=== PATIENT | female | born 1960 | race Caucasian/White ===

== ENCOUNTER 2022-02-01 20:57 | Observation (INO) ==
[2022-02-01 21:37] LABS: Bilirubin,Urine Negative (Negative); Blood,Urine Negative (Negative); Clarity,Urine Clear (Clear); Color,Urine Colorless (Yellow); Glucose,Urine (UA) Normal (Normal); Ketones,Urine Negative (Negative); Leukocyte Esterase,Urine Negative (Negative); Nitrite,Urine Negative (Negative); Protein,Urine Negative (Neg-Trace); Specific Gravity,Urine < 1.005 (1.010-1.025); Urobilinogen,Urine Normal (Normal)
[2022-02-01 21:40] LABS: Basophils # 0.1 K/mcL (0.0-0.2); Basophils % 0.6 %; Eosinophils # 0.1 K/mcL (0.0-0.6); Hematocrit 51.1 % (35.3-44.9); Hemoglobin 18.1 g/dL (11.5-15.4); Immature Granulocytes % 0.6 % (0-4); Lymphocytes # 3.1 K/mcL (0.6-4.6); Lymphocytes % 34.7 %; Mean Corpuscular HGB Conc 35.4 g/dL (31.6-35.5); Mean Corpuscular Hemoglobin 34.6 pg (28.0-33.3); Mean Corpuscular Volume 97.7 fL (83.0-100.0); Mean Platelet Volume 9.2 fL (9.4-12.4); Monocytes # 0.5 K/mcL (0.0-1.3); Monocytes % 5.8 %; Neutrophils # 5.1 K/mcL (1.6-8.9); Platelet Count 315 K/mcL (140-400); Red Blood Count 5.23 M/mcL (3.82-4.97); Red Cell Distribution Width 13.5 % (11.5-14.5); Segmented Neutrophils % 57.3 %; White Blood Count 8.9 K/mcL (4.3-11.1)
[2022-02-01 21:49] LABS: Amphetamine Screen,Urine Negative ng/mL (Cutoff=1000); Barbiturate Screen,Urine Negative ng/mL (Cutoff=200); Benzodiazepines Screen,Urine Positive ng/mL (Cutoff=200); Cannabinoid Screen,Urine Negative ng/mL (Cutoff = 50); Cocaine Screen,Urine Negative ng/mL (Cutoff= 300); Opiate Screen,Urine Negative ng/mL (Cutoff=300); Phencyclidine Screen,Urine Negative ng/mL (Cutoff=25)
[2022-02-01 22:02] LABS: Acetaminophen < 10 mcg/mL (10-20); Alanine Aminotransferase 13 Units/L (7-52); Albumin 4.2 g/dL (3.5-5.7); Albumin/Globulin Ratio 1.4 (1.1-2.2); Alkaline Phosphatase 70 Units/L (34-104); Aspartate Amino Transferase 12 Units/L (13-39); BUN/Creatinine Ratio 12 (6-26); Bilirubin,Indirect 0.4 mg/dL (0.0-1.0); Bilirubin,Total 0.4 mg/dL (0.3-1.0); Blood Urea Nitrogen 11 mg/dL (6-20); Calcium 9.4 mg/dL (8.6-10.3); Carbon Dioxide 27 mEq/L (23-29); Chloride 98 mEq/L (98-107); Ethanol 84 mg/dL (Less than 10); Glucose 78 mg/dL (70-105); Osmolality,Calculated 278 (280-300); Potassium 4.1 mEq/L (3.5-5.1); Salicylate < 2.5 mg/dL (15.0-30.0); Sodium 135 mEq/L (136-145); Total Protein 7.2 g/dL (6.4-8.9); eGFR For African Americans > 60 (> 60); eGFR For Non-African Americans > 60 (> 60)
[2022-02-02] MEDS ORDERED: Ondansetron 4 MG/2 ML VIAL IVP PRN (03:04)
[2022-02-02] MEDS ORDERED: Acetaminophen 325 MG TABLET PO PRN (03:04)
[2022-02-02] MEDS ORDERED: Melatonin 3 MG TABLET PO PRN (03:04)
[2022-02-02] MEDS ORDERED: Naloxone 0.4 MG/ML INJ IVP PRN (03:04)
[2022-02-02] MEDS ORDERED: *HR* LORazepam 2 MG/ML VIAL IVP PRN ×3 (03:12)
[2022-02-02] MEDS: Ringers Solution, Lactated 1,000 ML IVC SCH ×2 (03:43→10:35)
[2022-02-02] MEDS: *HR* Enoxaparin 40 MG/0.4 ML SYRINGE SQ SCH (05:50)
[2022-02-02 07:44] LABS: Basophils % 0.5 %; Eosinophils # 0.1 K/mcL (0.0-0.6); Eosinophils % 1.2 %; Hematocrit 44.2 % (35.3-44.9); Immature Granulocytes % 0.4 % (0-4); Lymphocytes # 2.2 K/mcL (0.6-4.6); Lymphocytes % 28.6 %; Mean Corpuscular HGB Conc 33.9 g/dL (31.6-35.5); Mean Corpuscular Hemoglobin 34.2 pg (28.0-33.3); Mean Corpuscular Volume 100.9 fL (83.0-100.0); Mean Platelet Volume 9.6 fL (9.4-12.4); Monocytes # 0.7 K/mcL (0.0-1.3); Monocytes % 8.7 %; Neutrophils # 4.7 K/mcL (1.6-8.9); Platelet Count 249 K/mcL (140-400); Red Blood Count 4.38 M/mcL (3.82-4.97); Red Cell Distribution Width 13.6 % (11.5-14.5); Segmented Neutrophils % 60.6 %; White Blood Count 7.7 K/mcL (4.3-11.1)
[2022-02-02 07:46] LABS: INR 0.9; Prothrombin Time 10.3 Seconds (9.4-12.1)
[2022-02-02 08:12] LABS: Alanine Aminotransferase 10 Units/L (7-52); Albumin 3.3 g/dL (3.5-5.7); Albumin/Globulin Ratio 1.4 (1.1-2.2); Alkaline Phosphatase 55 Units/L (34-104); Aspartate Amino Transferase 10 Units/L (13-39); BUN/Creatinine Ratio 14 (6-26); Bilirubin,Total 0.4 mg/dL (0.3-1.0); Blood Urea Nitrogen 12 mg/dL (6-20); Calcium 8.5 mg/dL (8.6-10.3); Carbon Dioxide 28 mEq/L (23-29); Chloride 106 mEq/L (98-107); Globulin 2.4 g/dL (2.4-3.5); Glucose 113 mg/dL (70-105); Magnesium 1.9 mg/dL (1.6-2.6); Osmolality,Calculated 291 (280-300); Sodium 140 mEq/L (136-145); Total Protein 5.7 g/dL (6.4-8.9); eGFR For African Americans > 60 (> 60); eGFR For Non-African Americans > 60 (> 60)
[2022-02-02] MEDS: Vitamin B Complex/Vit C/Vit E 1 EACH TABLET PO SCH (08:48)
[2022-02-02] MEDS: Folic Acid 1 MG TABLET PO SCH (08:48)
[2022-02-02] MEDS: Thiamine (B-1) 100 MG TABLET PO SCH (08:48)
[2022-02-02] MEDS: BuPROPion XL (24 HR) 150 MG TABLET PO SCH (11:44)
[2022-02-03] MEDS: *HR* Enoxaparin 40 MG/0.4 ML SYRINGE SQ SCH (05:35)
[2022-02-03] MEDS: Vitamin B Complex/Vit C/Vit E 1 EACH TABLET PO SCH (07:45)
[2022-02-03] MEDS: Folic Acid 1 MG TABLET PO SCH (07:45)
[2022-02-03] MEDS: BuPROPion XL (24 HR) 150 MG TABLET PO SCH (07:45)
[2022-02-03] MEDS: Thiamine (B-1) 100 MG TABLET PO SCH (07:45)
[2022-02-03 09:57] VITALS: TEMP 97.8; O2SAT 92
[2022-02-03 13:06] VITALS: BP 115/80; PULSE 97
== END 2022-02-03 14:33 ==
LOC: EMEROOARM 20:57 → 3NENU 20:57 → SUATTDRO 02-02 01:09 → 3NENU 02-02 01:53
PROVIDERS: ADMIT Internal Medicine; ATTEND Student in an Organized Health Care Education/Training Program

== ENCOUNTER 2022-02-03 14:22 | Observation (INO) ==
[2022-02-03] MEDS ORDERED: hydrOXYzine pamoate 25 MG CAPSULE PO PRN (14:52)
[2022-02-03] MEDS ORDERED: *HR* LORazepam 2 MG/ML VIAL IM PRN (14:52)
[2022-02-03] MEDS ORDERED: haloperidoL 5 MG TABLET PO PRN (14:52)
[2022-02-03] MEDS ORDERED: Mag Hydrox/Al Hydrox/Simeth 30 ML UDC PO PRN (14:52)
[2022-02-03] MEDS ORDERED: *HR* LORazepam 1 MG TABLET PO PRN (14:52)
[2022-02-03] MEDS ORDERED: Haloperidol Lactate 5 MG/ML VIAL IM PRN (14:52)
[2022-02-03] MEDS ORDERED: traZODone 50 MG TABLET PO PRN (14:52)
[2022-02-03] MEDS ORDERED: MOM Conc 10 ML UD.LIQ PO PRN (14:52)
[2022-02-03] MEDS ORDERED: diazePAM 5 MG TABLET PO PRN (15:02)
[2022-02-03] MEDS: Acetaminophen 325 MG TABLET PO PRN (16:57)
[2022-02-04] MEDS: Acetaminophen 325 MG TABLET PO PRN (03:17)
[2022-02-04] MEDS ORDERED: Thiamine (B-1) 100 MG TABLET PO SCH (09:00)
[2022-02-04] MEDS ORDERED: Vitamin B Complex/Vit C/Vit E 1 EACH TABLET PO SCH (09:00)
[2022-02-04] MEDS ORDERED: BuPROPion XL (24 HR) 150 MG TABLET PO SCH (09:00)
[2022-02-04] MEDS ORDERED: Folic Acid 1 MG TABLET PO SCH (09:00)
[2022-02-04] MEDS ORDERED: Cholecalciferol (D-3) 1,000 UNIT (25MCG) TABLET PO SCH (09:00)
[2022-02-04 09:25] VITALS: BP 107/75; PULSE 70; TEMP 98.2; O2SAT 95
== END 2022-02-04 12:14 | disposition home or self-care (01) ==
LOC: INTOOBSV 14:22 → 1ANU 14:22
PROVIDERS: ADMIT Psychiatry & Neurology Psychiatry; ATTEND Psychiatry & Neurology Psychiatry